=== PATIENT | male | born 1995 | race Caucasian/White ===

== ENCOUNTER 2018-04-12 09:24 | Emergency (ER) | payer MEDICAID, SELFPAY ==
[2018-04-12 09:32] VITALS: BP 119/70; PULSE 115; RESP 20; TEMP 36.5; O2SAT 100
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
[2018-04-12] MEDS: TET,DIPH,PERTUSS(ACELL),VAC/PF 0.5 ML SYRINGE IM (10:22)
[2018-04-12 11:30] VITALS: BP 110/71; PULSE 108; RESP 20; O2SAT 100
== END 2018-04-12 11:30 | disposition home or self-care (01) ==
PROVIDERS: Emergency Provider Emergency Medicine
DX: S02.2XXA Fracture of nasal bones, initial encounter for closed fracture (principal); J34.2 Deviated nasal septum; V48.5XXA Car driver injured in noncollision transport accident in traffic accident, initial encounter; Z23 Encounter for immunization
CPT/HCPCS: 70486; 90471; 99282; 99283; 99284; 90715